=== PATIENT | female | born 1995 | race Caucasian/White ===

== ENCOUNTER 2024-12-29 07:38 | Emergency (ER) | payer SELFPAY ==
[~2024-12-29] VITALS: Ht 157.4 cm; Wt 66.2 kg
[2024-12-29] MEDS ORDERED: Acetaminophen/Oxycodone 5 MG/325 MG TABLET PO ONE (08:00)
[2024-12-29] MEDS ORDERED: MELOXICAM15 MG PO (08:43)
== END 2024-12-29 09:00 | disposition home or self-care (01) ==
LOC: ED 07:38
DX: S63.502A Unspecified sprain of left wrist, initial encounter (principal); S73.102A Unspecified sprain of left hip, initial encounter; S09.90XA Unspecified injury of head, initial encounter; W01.0XXA Fall on same level from slipping, tripping and stumbling without subsequent striking against object, initial encounter; Y93.89 Activity, other specified; Y92.098 Other place in other non-institutional residence as the place of occurrence of the external cause; Y99.8 Other external cause status